=== PATIENT | female | born 1950 | race African-American/Black ===

== ENCOUNTER 2016-06-19 06:11 | Emergency (ER) | payer OTHER ==
--- NOTE | ~2016-06-19 | CR72 ---
[facility] A Service of [facility] & [facility] RADIOLOGY TEXT RESULTS PATIENT: RAJEEV BECKFORD LOCATION: [facility] : 49 UNIT #: [id number] AGE: [address]: Shahram Goode MD SEX: F ORDER DR: [id number] [facility] [address] [place], [place] [address] [id number] E MR#: [id number] #: [id number] NAME: RAJEEV BECKFORD : 1950 SEX: F STUDY DATE/TIME: 06/19/2016 6:02 UNIT: [facility] ROOM: STUDY DESCRIPTION: CR Chest Single View Portable Attending Physician: Shahram Goode M.D. Ordering Physician: Shahram Goode M.D. Primary Care Physician: Costa Wright M.D. MEDICAL IMAGING REPORT This report is preliminary unless electronic signature is present EXAM Portable AP view of the chest COMPARISON June 01, 2016 and November 09, 2014 INDICATION 66-year-old female with chest pain on the right for 3 days. FINDINGS There is lung hyperexpansion and flattening of the diaphragms suggesting COPD. There are emphysematous changes in the pulmonary apices. There is no evidence of pneumothorax, pleural effusion or acute airspace disease. Cardiomediastinal silhouette is within normal limits for portable technique. There is a nodular-appearing opacity in the right upper lobe measuring up to 1.4 cm which was present in this location in October 2014 as an area of consolidation. This could reflect residual scarring but suspicious pulmonary nodule cannot be excluded given the patient's emphysema. There are nipple shadows seen over the lower chest bilaterally. Calcification of the aortic arch. IMPRESSION 1. No acute radiographic abnormality of the chest. There is a persistent 1.4 cm nodular opacity in the right upper lobe where the was an area of consolidation in October 2014. This could reflect residual scarring but a suspicious pulmonary nodule cannot be excluded given the patient's emphysema. Correlation with chest CT is recommended. It is noted that the patient has a chest CT scheduled for today and this should be evaluated on that the study. 2. Emphysema as described with lung hyperexpansion consistent with COPD. No acute airspace disease, pneumothorax or pleural effusion. [facility] A Service of [facility] RADIOLOGY TEXT RESULTS PATIENT: RAJEEV BECKFORD LOCATION: [facility] : 48 UNIT #: [id number] AGE: [address]: Shahram Goode MD SEX: F ORDER DR: Dictated by... Stalin Conte M.D. THIS IS AN ELECTRONICALLY VERIFIED REPORT Stalin Conte M.D. at 06/24/2016 12:45 AM Kar TD: 06/19/2016 08:18 JOB #: [id number] MEDICAL IMAGING REPORT Page 1 of 1 COPY
--- NOTE | ~2016-06-19 | EKG ---
PATIENT: RAJEEV BECKFORD UNIT #: [id number] Ventricular Rate: 101 BPM Atrial Rate: 101 BPM P-R Interval: 180 ms QRS Duration: 78 ms Q-T Interval: 342 ms QTC Calculation(Bezet): 443 ms P Homeland: 77 degrees Calculated R Homeland: 68 degrees Calculated T Homeland: 68 degrees Diagnosis Line: Sinus tachycardia Diagnosis Line: Biatrial enlargement Diagnosis Line: Abnormal ECG Diagnosis Line: No previous ECGs available Diagnosis Line: Confirmed by MARILYN SPENCER MD ([id number]) on 06/19/2016 Diagnosis Line: 7:20:37 PM INTERPRETING MD: TJ HAWK
--- NOTE | ~2016-06-19 | CT16 ---
[facility] A Service of [facility] & [facility] RADIOLOGY TEXT RESULTS PATIENT: RAJEEV BECKFORD LOCATION: [facility] : 49 UNIT #: [id number] AGE: [address]: Shahram Goode MD SEX: F ORDER DR: [id number] [facility] [address] [place], [place] [address] [id number] E MR#: [id number] #: [id number] NAME: RAJEEV BECKFORD : 1950 SEX: F STUDY DATE/TIME: 06/19/2016 7:24 UNIT: [facility] ROOM: STUDY DESCRIPTION: CT Angio Chest for PE Attending Physician: Shahram Goode M.D. Ordering Physician: Shahram Goode M.D. Primary Care Physician: Costa Wright M.D. MEDICAL IMAGING REPORT This report is preliminary unless electronic signature is present EXAM CT angiogram of the chest. INDICATION Right-sided chest pain radiating to the right arm has been present for [address] images were obtained from the thoracic inlet through the dome of the diaphragm following the administration of intravenous contrast material. Following this, 3-D reformatted images were obtained. This CT exam was performed with one or more of the following radiation dose reduction techniques: automatic exposure control, adjustment of mA and/or kV according to patient size, and iterative reconstruction. FINDINGS No acute pulmonary thromboembolus is seen. I do think the right and left pulmonary arteries do appear somewhat dilated which can be seen in the setting of pulmonary arterial hypertension. This examination was not optimized for evaluation of the thoracic aorta. Aorta does measure within normal size limits. I do not see an obvious dissection. Patient does have dense atherosclerotic involvement of the thoracic aorta. There are coronary artery calcifications. There is no pleural or pericardial effusion. The thyroid gland, trachea, and esophagus appear unremarkable. Background emphysematous changes are seen. Within the right upper lobe, there is a pleural-based nodule measuring up to 1.2 x 1.0 cm. This is at the location of the patient's prior known malignancy. On the prior exam from February 2016, it appeared as a somewhat amorphous area of scarring, again does have a discrete the nodular configuration on today's exam. I think its appearance is certainly very concerning for recurrent or residual disease. [facility] A Service of [facility] & [facility] RADIOLOGY TEXT RESULTS PATIENT: RAJEEV BECKFORD LOCATION: [facility] : 48 UNIT #: [id number] AGE: [address]: Shahram Goode MD SEX: F ORDER DR: Postradiation change would be another consideration but is considered less likely. Further evaluation with PET on a nonemergent outpatient basis is recommended. Two additional nodules, one within the right middle lobe and the other within the right lower lobe have been stable since at least September 2014 and are though to be benign. Dense atherosclerotic involvement continues into the abdominal aorta. I do not see any acute abnormalities within the upper abdomen. There is prominence of the common bile duct, as well as of the pancreatic duct which is unchanged when compared to the February 2016 exam and is incompletely evaluated on this study. I do not it is significantly changed when compared to the exam from 2016. No aggressive osseous abnormalities are seen. Old right third rib fracture is noted but no aggressive osseous abnormalities are seen. Mediastinal lymph nodes are mildly prominent but not significantly changed when compared to the exam from February 2016, however, they are improved when compared to the exam from September 2014. IMPRESSION 1. No acute pulmonary thromboembolus seen. 2. This patient has a pleural-based nodule within the right upper lobe which is much more apparent than on the prior CT from February 2016.. This is at the site of a prior, previously treated known lung cancer. The possibility that this reflects recurrent or residual disease is certainly not excluded. Further evaluation with PET on a nonemergent outpatient basis is recommended. No additional new pulmonary nodules or masses are seen. Patient does have 2 stable noncalcified pulmonary nodules within the right lung, unchanged from September 2014 and felt to be benign. 3. Enlargement of the pulmonary arteries bilaterally may reflect underlying pulmonary arterial hypertension. 4. Mildly prominent mediastinal lymph nodes not significantly changed when compared to February 2016 and improved when compared to September 2014. 5. There is some enlargement of the common bile duct and the pancreatic duct also appears prominent. Potentially, this may be related to post cholecystectomy change. It is probably stable when compared to at least July 2015. Please see the body of the report for any other additional incidental findings. Dictated by... Aliza Yost M.D. THIS IS AN ELECTRONICALLY VERIFIED REPORT Aliza Yost M.D. at 06/19/2016 4:28 PM AFF/tmw [facility] A Service of [facility] RADIOLOGY TEXT RESULTS PATIENT: RAJEEV BECKFORD LOCATION: [facility] : 48 UNIT #: [id number] AGE: [address]: Shahram Goode MD SEX: F ORDER DR: TD: 06/19/2016 09:10 JOB #: [id number] MEDICAL IMAGING REPORT Page 1 of 1 COPY
[~2016-06-19 06:11] MED LIST: AFRIN3 ML; ALBUTEROL17 GM INH; ASPIRIN81 M1 PO; DOXYCYCLINE PO; FLEXERIL PO; HYDROCODON-ACE1 EAC5 PO; LORTAB 5/500 TA1 TA1 PO; MULTI-DAY1 TAB PO; NAPROXEN PO; NORVASC PO; PHENERGAN W/CO120 ML PO; RED YEAST RICE600 MG PO; RONDEC DROPS30 ML PO; STIOLTO RESPIMAT4 GM; ZITHROMAX PO
[2016-06-19 06:17] LABS: BASOPHIL# 0.2 X10e3 (0-0.3); BASOPHIL% 1.3 % (0-2.5); EOSINOPHIL# 0.1 X10e3 (0-0.7); EOSINOPHIL% 0.7 % (0.0-7.0); HEMATOCRIT 38.9 % (35.0-45.0); HEMOGLOBIN 12.5 gm/dL (12.0-16.0); LYMPHOCYTE# 2.6 X10e3 (1.0-3.5); LYMPHOCYTE% 20.9 % (17.0-45.0); MEAN CORPUSCULAR HEMOGLOBIN 28.6 PG (28-34); MEAN CORPUSCULAR HGB CONC 32.2 g/dL (30-36); MEAN PLATELET VOLUME 8.8 FL (6.5-11.5); MONOCYTE# 1.1 X10e3 (0-1.0); MONOCYTE% 9.1 % (3.0-12.0); NEUTROPHIL# 8.4 X10e3 (1.5-7.1); PLATELET COUNT 323 X10e3 (140-420); RED BLOOD COUNT 4.37 X10e (3.90-5.30); RED CELL DISTRIBUTION WIDTH 13.4 % (11.0-15.5); WHITE BLOOD COUNT 12.4 X10e3 (4.0-10.5)
[2016-06-19 06:18] LABS: POC - CKMB 2.4 ng/mL (0.0-7.9); POC - TROPONIN <0.05 ng/mL (<=0.05)
[2016-06-19 06:18] LABS: DIFF IND NO
[2016-06-19 06:59] LABS: ALBUMIN SERUM 4.2 g/dL (3.5-5.0); ALKALINE PHOSPHATASE 73 U/L (32-92); ALT (SGPT) 13 U/L (10-40); AST (SGOT) 23 U/L (10-42); BILIRUBIN,TOTAL 0.7 mg/dL (0.2-2.0); BLOOD UREA NITROGEN 10 mg/dL (9-23); CALCIUM SERUM 9.9 mg/dL (8.4-10.2); CARBON DIOXIDE 27 mmol/L (22-31); CHLORIDE 95 mmol/L (100-111); CREATININE SERUM 0.8 mg/dL (0.6-1.4); GLOM FILT RATE Estimated 88.5 mL/min (>60); GLUCOSE FASTING 171 mg/dL (70-110); POTASSIUM 3.3 mmol/L (3.5-5.1); PROTEIN TOTAL SERUM 8.2 g/dL (6.0-8.3); SODIUM 135 mmol/L (135-145)
[2016-06-19 07:02] LABS: PARTIAL THROMBOPLASTIN TIME 30.6 SECONDS (23.5-31.3); PROTHROMBIN TIME (PATIENT) 10.3 SECONDS (9.6-11.5)
[2016-06-19 07:04] LABS: BILIRUBIN, DIRECT <0.1 mg/dL (0.0-0.2); BILIRUBIN,INDIRECT 0.6 mg/dL (0.0-0.9)
[2016-06-19 08:28] LABS: POC - CKMB 2.9 ng/mL (0.0-7.9); POC - TROPONIN <0.05 ng/mL (<=0.05)
== END 2016-06-19 09:05 | disposition home or self-care (01) ==
LOC: CED 06:11
PROVIDERS: Emergency Medicine
DX: R09.1 Pleurisy (principal); F17.210 Nicotine dependence, cigarettes, uncomplicated; Z79.899 Other long term (current) drug therapy
CPT/HCPCS: 36415; 71010; 71275; 80048; 80076; 82553; 84484; 85025; 85610; 85730; 93005; 99284; Q9967